=== PATIENT | female | born 1975 | race Caucasian/White ===

== ENCOUNTER → 2017-05-05 | Outpatient (REF) ==
[~2017-05-05] MED LIST: CELEXA; MIRENA52 MG IU; PRENATAL1 TA1 PO
== END ==
LOC: ZLAB.WCH 08:35
DX: Z01.89 Encounter for other specified special examinations (principal)

== ENCOUNTER → 2017-06-15 | Outpatient (CLI) | payer OTHER | LOC: COL.CARD 05-24 13:30 | DX: R00.2 Palpitations (principal) ==

== ENCOUNTER → 2018-05-23 | Outpatient (REF) | LOC: ZLAB.WCH 16:41 | DX: Z01.89 Encounter for other specified special examinations (principal) ==

== ENCOUNTER → 2023-12-02 | Outpatient (CLI) | payer BC ==
[~2023-12-02] MED LIST changes: +ALLEGRA-D TABLE1 TAB PO; +CYANOCOBAL1000 MCG/1 IM; +ESTRACE0.1 MG/GM VG; +LOPRESSOR 225 MG/TAB PO; +MULTI VITAMINS1 TAB PO; +TYLENOL 500MG500 MG PO; +XANAX 0.5MG0.5 MG PO
== END ==
LOC: MC.RAD 08:30
DX: Z12.31 Encounter for screening mammogram for malignant neoplasm of breast (principal)